=== PATIENT | male | born 1995 | race Hispanic/Latino ===

== ENCOUNTER 2017-10-28 12:30 | Emergency (ER) | payer MEDICAID ==
[2017-10-28 12:37] VITALS: BP 134/77; PULSE 97; RESP 16; TEMP 97.9; O2SAT 100
--- NOTE | 2017-10-28 12:48 | ED PDOC ---
HPI: CCC, URI, Sore Throat Time Seen by Provider: 10/28/17 12:37 Chief Complaint (Nursing): ENT Problem Chief Complaint (Provider): sore thoart History Per: Patient History/Exam Limitations: no limitations Have you had recent travel within the past 21 days to any of the following countries: [place], [place], [place] or [place]?: No Onset/Duration Of Symptoms: Days (2) Current Symptoms Are (Timing): Still Present Location Of Pain: Throat. denies: Ear(s), Sinus/es, Diffuse Myalgias, Headache Associated Symptoms: Sore Throat, Cough, Sputum (green). denies: Fever, Chills , Neck Pain, Sinus Drainage, Myalgias, Nasal Congestion, Nausea, Vomiting, Diarrhea Ear Symptoms: Bilateral: None Severity: Moderate Pain Scale Rating Of: 6 Past Medical History Reviewed: Historical Data, Nursing Documentation, Vital Signs Vital Signs: Last Vital Signs Temp 97.9 F 10/28/17 12:35 Pulse 97 H 10/28/17 12:35 Resp 16 10/28/17 12:35 BP 134/77 10/28/17 12:35 Pulse Ox 100 10/28/17 12:49 - Medical History PMH: Asthma, Depression, Schizophrenia Denies: Diabetes, Hepatitis, HIV, HTN, Chronic Kidney Disease, Seizures, Sexually Transmitted Disease - Surgical History Surgical History: Appendectomy - Family History Family History: States: Unknown Family Hx - Home Medications Home Medications: Ambulatory Orders Medication Instructions Recorded Divalproex [Depakote] 125 mg PO TID 12/18/14 Ibuprofen 600 mg PO Q6 PRN #20 tablet 05/19/16 Azithromycin [Zithromax] 250 mg PO DAILY #6 tab 10/28/17 - Allergies Allergies/Adverse Reactions: Allergies Allergy/AdvReac Type Severity Reaction Status Date / Time No Known Allergies Allergy Verified 10/28/17 12:47 Curb-65 Severity Score - CURB-65 Severity Score Confusion: No Bun >19mg/dl (>7mmol/L): No Respiratory Rate greater than/equal to 30: No Systolic BP <90 or Diastolic BP less than/equal 60mmHg: No Age >64: No Curb-65 Score: 0 Percentage 30-day mortality: 0.6% Review of Systems ROS Statement: Except As Marked, All Systems Reviewed And Found Negative Constitutional: Negative for: Fever, Chills ENT: Positive for: Throat Swelling Respiratory: Positive for: Cough, Sputum Physical Exam - Reviewed Nursing Documentation Reviewed: Yes Vital Signs Reviewed: Yes - Physical Exam Appears: Positive for: Well, Non-toxic, No Acute Distress Skin: Positive for: Normal Color, Warm, DRY ENT: Positive for: TM Is/Are (NAD), Pharyngeal Erythema. Negative for: Sinus Pain/Drainage, Nasal Congestion, Tonsillar Exudate, Tonsillar Swelling Cardiovascular/Chest: Positive for: Regular Rate, Rhythm Respiratory: Positive for: Normal Breath Sounds. Negative for: Decreased Breath Sounds, Accessory Muscle Use, Crackles, Rales, Stridor, Wheezing, Respiratory Distress, Plerual Rub Neurologic/Psych: Positive for: Alert, Oriented - ECG O2 Sat by Pulse Oximetry: 100 - Progress ED Course And Treament: Orders Category Date Time Status RAPID STREP GROUP A ANTIGEN Stat Serology 10/28/17 12:46 Uncollected pt offered chest xray due to c/o green sputum and cough, but declined. Medical Decision Making Medical Decision Making: negative for strep, however pt still refused chest xray will givne Z-pack pt is demanding abx. advised to have pmd f.u and to take abx only if with fever and persistent cough. Disposition - Clinical Impression Clinical Impression: Sore throat - Patient ED Disposition Is Patient to be Admitted: No Counseled Patient/Family Regarding: Studies Performed, Diagnosis, Need For Followup, Rx Given - Disposition Disposition: Routine/Home Disposition Time: 13:55 Condition: STABLE Prescriptions: Azithromycin [Zithromax] 250 mg PO DAILY #6 tab Instructions: Strep Throat (ED) Forms: [employer] (Faroese)
== END 2017-10-28 14:05 | disposition home or self-care (01) ==
LOC: H.ER 12:30
DX: J02.0 Streptococcal pharyngitis (principal); F20.9 Schizophrenia, unspecified; F32.9 Major depressive disorder, single episode, unspecified; J45.909 Unspecified asthma, uncomplicated